=== PATIENT | female | born 1945 | race Two or more races ===

== ENCOUNTER 2017-12-29 13:40 | Emergency (ER) | payer OTHER ==
[~2017-12-29] VITALS: Ht 154.9 cm; Wt 63.5 kg
[2017-12-29 13:49] VITALS: Ht 154.9 cm; Wt 63.5 kg
[2017-12-29 14:42] LABS: BASOPHIL % 0.3 % (0-2); PLATELET COUNT 156 x10^3mcL (130-400); RED CELL DISTRIBUTION WIDTH 14.5 % (11.5-14.5)
[2017-12-29 14:43] LABS: CALCIUM 9.5 mg/dL (8.5-10.1); CARBON DIOXIDE 28.8 mmol/L (21-32); CHLORIDE SERUM 104 mmol/L (98-107); CREATININE SERUM 0.8 mg/dL (0.6-1.0); GLUCOSE SERUM 129 mg/dL (74-106); POTASSIUM SERUM 4.1 mmol/L (3.5-5.1); SODIUM SERUM 135 mmol/L (136-145)
[2017-12-29 16:32] VITALS: BP 146/97
== END 2017-12-29 16:32 | disposition home or self-care (01) ==
LOC: ED 13:40
PROVIDERS: Emergency Medicine
DX: T40.2X1A Poisoning by other opioids, accidental (unintentional), initial encounter (principal); I50.9 Heart failure, unspecified; Y92.89 Other specified places as the place of occurrence of the external cause
CPT/HCPCS: J2310; J2405

== ENCOUNTER 2018-09-13 16:12 | Emergency (ER) | payer OTHER ==
[~2018-09-13] VITALS: Ht 162.6 cm; Wt 64.9 kg
[2018-09-13 16:26] VITALS: BP 143/84; Ht 162.6 cm; Wt 64.9 kg
== END 2018-09-13 16:58 | disposition home or self-care (01) ==
LOC: ED 16:12
DX: L84 Corns and callosities (principal); L03.031 Cellulitis of right toe; I50.9 Heart failure, unspecified; I48.91 Unspecified atrial fibrillation
CPT/HCPCS: 90715